=== PATIENT | male | born 1975 | race Caucasian/White ===

== ENCOUNTER → 2017-07-16 | Outpatient (CLI) | payer BC ==
--- NOTE | 2017-07-16 09:51 | XR ---
EXAM TYPE: LUMBAR SPINE X RAY SERIES COMPARISON: NONE HISTORY: Lower back pain TECHNIQUE: 4 views are submitted. FINDINGS: Alignment is anatomic. The pedicles are intact. The transverse processes are intact. There is no s pondylolysis or spondylolisthesis. Facet arthropathy L5-S1. Degenerative disc disease L4-5 and L5-S1 . IMPRESSION: 1. Generative disc disease L4-L5 and L5-S1 with facet arthropathy..
== END | disposition home or self-care (01) ==
LOC: RADXRMAIN 09:11
PROVIDERS: ATTEND Internal Medicine Critical Care Medicine
DX: M51.37 Other intervertebral disc degeneration, lumbosacral region (principal); M46.06 Spinal enthesopathy, lumbar region
CPT/HCPCS: 72110

== ENCOUNTER → 2017-07-29 | Outpatient (CLI) | payer BC ==
--- NOTE | 2017-07-29 08:33 | CT ---
EXAMINATION TYPE: CT lumbar spine w con DATE OF EXAM: 07/29/2017 COMPARISON: NONE HISTORY: Low back strain CT DLP: 407 mGycm CONTRAST: Unenhanced CT of the lumbar spine is performed with IV Contrast, patient injected with 100 ml mL of O mnipaque 300. Unenhanced CT of the lumbar spine was performed. Bone and soft tissue window settings are submitted as well as coronal and sagittal reconstructions. L1-L2: Normal disc space height. No disc herniation protrusion or central stenosis. No facet joint arthropathy. No evidence for foraminal encroachment. L2-L3: Normal disc space height. No disc herniation protrusion or central stenosis. No facet joint arthropathy. No evidence for foraminal encroachment. L3-L4: Normal disc space height. No disc herniation protrusion or central stenosis. No facet joint arthropathy. No evidence for foraminal encroachment. L4-L5: Normal disc space height. No disc herniation protrusion or central stenosis. No facet joint arthropathy. No evidence for foraminal encroachment. L5-S1: Mild degenerative disc space narrowing. Right paracentral disc herniation without extrusion. R ight lateral recess stenosis and mild right foraminal encroachment. No evidence for central stenosis at this time. No paraspinal masses are identified. Lumbar segments are free if fracture. IMPRESSION: 1. Right paracentral disc herniation at L5-S1 with right lateral recess stenosis.
== END | disposition home or self-care (01) ==
LOC: RADCTMAIN 07:39
PROVIDERS: ATTEND Internal Medicine Critical Care Medicine
DX: M48.07 Spinal stenosis, lumbosacral region (principal); M51.27 Other intervertebral disc displacement, lumbosacral region
CPT/HCPCS: 72132; Q9967

== ENCOUNTER → 2017-11-16 | Outpatient (CLI) | payer BC ==
[2017-11-16 10:51] LABS: T4, Free (Free Thyroxine) <0.07 ng/dL (0.78-2.19)
== END | disposition home or self-care (01) ==
LOC: LABWHC1 09:59
PROVIDERS: ATTEND Internal Medicine Critical Care Medicine
DX: E03.9 Hypothyroidism, unspecified (principal)
CPT/HCPCS: 36415; 84439; 84443

== ENCOUNTER → 2018-05-24 | Outpatient (CLI) | payer BC ==
[2018-05-24 11:18] LABS: T4, Free (Free Thyroxine) 1.72 ng/dL (0.78-2.19)
== END ==
LOC: LABWHC1 10:08
PROVIDERS: ATTEND Internal Medicine Critical Care Medicine
DX: E03.9 Hypothyroidism, unspecified (principal)
CPT/HCPCS: 36415; 84439; 84443

== ENCOUNTER 2018-11-11 20:39 | Emergency (ER) | payer OTHER, BC ==
[2018-11-11 20:58] VITALS: TEMP 98.2
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
[2018-11-11 22:42] VITALS: BP 139/87; PULSE 61; RESP 18
== END 2018-11-11 22:42 | disposition home or self-care (01) ==
LOC: EC 20:39
DX: S89.91XA Unspecified injury of right lower leg, initial encounter (principal); S89.92XA Unspecified injury of left lower leg, initial encounter; S49.91XA Unspecified injury of right shoulder and upper arm, initial encounter; S49.92XA Unspecified injury of left shoulder and upper arm, initial encounter; M19.90 Unspecified osteoarthritis, unspecified site; E07.9 Disorder of thyroid, unspecified; Z87.891 Personal history of nicotine dependence; Z79.1 Long term (current) use of non-steroidal anti-inflammatories (NSAID); Z79.899 Other long term (current) drug therapy; V43.52XA Car driver injured in collision with other type car in traffic accident, initial encounter; Y92.89 Other specified places as the place of occurrence of the external cause
CPT/HCPCS: 99283

== ENCOUNTER → 2019-06-15 | Outpatient (CLI) | payer BC | END | disposition home or self-care (01) | LOC: LABWHC1 13:46 | PROVIDERS: ATTEND Internal Medicine Critical Care Medicine | DX: E03.9 Hypothyroidism, unspecified (principal) | CPT/HCPCS: 36415; 84439; 84443 ==

== ENCOUNTER → 2020-07-29 | Outpatient (CLI) | payer BC ==
[2020-07-29 16:48] LABS: T4, Free (Free Thyroxine) 1.4 ng/dL (0.80-1.80)
== END | disposition home or self-care (01) ==
LOC: LABWHC1 09:10
PROVIDERS: ATTEND Internal Medicine Critical Care Medicine
DX: E03.9 Hypothyroidism, unspecified (principal)
CPT/HCPCS: 36415; 84439; 84443

== ENCOUNTER → 2021-03-28 | Outpatient (CLI) | payer BC ==
[2021-03-28 16:06] LABS: Amylase 58 U/L (23-121); Lipase 56 U/L (14-60)
== END | disposition home or self-care (01) ==
LOC: LABWHC1 09:53
PROVIDERS: ATTEND Internal Medicine Critical Care Medicine
DX: R10.9 Unspecified abdominal pain (principal)
CPT/HCPCS: 36415; 82150; 83690

== ENCOUNTER → 2021-10-08 | Outpatient (CLI) | payer BC ==
[2021-10-08 15:33] LABS: T4, Free (Free Thyroxine) 1.48 ng/dL (0.800-1.800)
== END | disposition home or self-care (01) ==
LOC: LABWHC1 07:51
PROVIDERS: ATTEND Internal Medicine Critical Care Medicine
DX: E03.9 Hypothyroidism, unspecified (principal)
CPT/HCPCS: 36415; 84439; 84443

== ENCOUNTER → 2022-11-06 | Outpatient (CLI) | payer BC ==
[2022-11-06 15:11] LABS: Basophils # (A) 0.08 X 10*3/uL (0.00-0.10); Basophils % (A) 1.2 %; Eosinophils # (A) 0.29 X 10*3/uL (0.04-0.35); Eosinophils % (A) 4.5 %; HGB 13.6 g/dL (13.0-17.0); Immature Grans, Automated 0.2 %; Lymphocytes # (A) 1.97 X 10*3/uL (0.90-5.00); Lymphocytes % (A) 30.7 %; MCH 33.3 pg (27.0-32.0); Mean Platelet Volume 11.3 fL (9.5-12.2); Monocytes # (A) 0.38 X 10*3/uL (0.20-1.00); Monocytes % (A) 5.9 %; NRBC Per 100 WBC 0 /100 WBCS (0.0-0.0); Neutrophils # (A) 3.69 X 10*3/uL (1.80-7.70); Neutrophils % (A) 57.5 %; Platelet Count 274 X 10*3/uL (140-440); RBC 4.08 X 10*6/uL (4.40-5.60); WBC 6.42 X 10*3/uL (4.50-10.00)
[2022-11-06 15:46] LABS: Prostate Specific Antigen 0.6 ng/mL (0.00-2.50); T4, Free (Free Thyroxine) 1.24 ng/dL (0.800-1.800)
== END | disposition home or self-care (01) ==
LOC: LABWHC1 09:55
PROVIDERS: ATTEND Internal Medicine Critical Care Medicine
DX: Z00.00 Encounter for general adult medical examination without abnormal findings (principal); E03.9 Hypothyroidism, unspecified; K58.9 Irritable bowel syndrome, unspecified; R76.11 Nonspecific reaction to tuberculin skin test without active tuberculosis
CPT/HCPCS: 36415; 82306; 82947; 83036; 84153; 84439; 84443; 85025

== ENCOUNTER → 2023-10-29 | Outpatient (CLI) | payer BC ==
[2023-10-29 15:57] LABS: ALT 15 U/L (10-49); AST 16 U/L (14-35); Albumin 4.5 g/dL (3.8-4.9); Albumin/Globulin Ratio 2.05 Ratio (1.60-3.17); Alkaline Phosphatase 77 U/L (41-126); Blood Urea Nitrogen 8.4 mg/dL (9.0-27.0); Calcium 9.7 mg/dL (8.7-10.3); Carbon Dioxide 25.7 mmol/L (21.6-31.8); Chloride 105 mmol/L (96-109); Chol/HDL Ratio 2.87 Ratio; Globulin 2.2 g/dL (1.6-3.3); Glucose 96 mg/dL (70-110); LDL Cholesterol,Calculated 80.7 mg/dL (0.0-131.0); Potassium 4.6 mmol/L (3.5-5.5); Sodium 140 mmol/L (135-145); T4, Free (Free Thyroxine) 1.45 ng/dL (0.80-1.80); Total Protein 6.7 g/dL (6.2-8.2); VLDL Calculation 11.12 mg/dL (5.00-40.00)
[2023-10-29 16:41] LABS: PSA Annual Screen 0.522 ng/mL (0.000-4.000)
[2023-10-29 16:47] LABS: Basophils # (A) 0.06 X 10*3/uL (0.00-0.10); Eosinophils # (A) 0.22 X 10*3/uL (0.04-0.35); Eosinophils % (A) 3.7 %; HCT 38.4 % (39.6-50.0); Lymphocytes # (A) 1.94 X 10*3/uL (0.90-5.00); Lymphocytes % (A) 32.8 %; MCH 34.9 pg (27.0-32.0); MCHC 33.9 g/dL (32.0-37.0); MCV 102.9 FL (80.0-97.0); Mean Platelet Volume 11.7 FL (9.5-12.2); Monocytes # (A) 0.34 X 10*3/uL (0.20-1.00); Monocytes % (A) 5.7 %; NRBC Per 100 WBC 0 X 10*3/uL (0.00-0.01); Neutrophils # (A) 3.35 X 10*3/uL (1.80-7.70); Neutrophils % (A) 56.6 %; Platelet Count 267 X 10*3/uL (140-440); RBC 3.73 X 10*6/uL (4.40-5.60); RDW 14.2 % (11.5-14.5); WBC 5.92 X 10*3/uL (4.50-10.00)
== END | disposition home or self-care (01) ==
LOC: LABWHC1 09:48
PROVIDERS: ATTEND Internal Medicine Critical Care Medicine
DX: Z12.5 Encounter for screening for malignant neoplasm of prostate (principal); E55.9 Vitamin D deficiency, unspecified; E03.9 Hypothyroidism, unspecified; R76.11 Nonspecific reaction to tuberculin skin test without active tuberculosis
CPT/HCPCS: 84439; 80061; 80053; 84443; 85025; 82306; 83036; 36415; G0103

== ENCOUNTER → 2024-11-11 | Outpatient (CLI) | payer BC ==
[2024-11-11 13:35] LABS: Basophils # (A) 0.11 X 10*3/uL (0.00-0.10); Basophils % (A) 1.6 %; Eosinophils # (A) 0.39 X 10*3/uL (0.04-0.35); Eosinophils % (A) 5.6 %; Lymphocytes # (A) 1.89 X 10*3/uL (0.90-5.00); Lymphocytes % (A) 27.2 %; MCH 28.8 pg (27.0-32.0); MCHC 30.6 g/dL (32.0-37.0); MCV 94.2 FL (80.0-97.0); Mean Platelet Volume 13.2 FL (9.5-12.2); Monocytes # (A) 0.42 X 10*3/uL (0.20-1.00); NRBC Per 100 WBC 0 X 10*3/uL (0.00-0.01); Neutrophils # (A) 4.12 X 10*3/uL (1.80-7.70); Neutrophils % (A) 59.3 %; Platelet Count 240 X 10*3/uL (140-440); RDW 12.8 % (11.5-14.5); WBC 6.95 X 10*3/uL (4.50-10.00)
[2024-11-11 14:02] LABS: ALT 34 U/L (10-49); AST 27 U/L (14-35); Albumin 4.4 g/dL (3.8-4.9); Albumin/Globulin Ratio 1.83 Ratio (1.60-3.17); Alkaline Phosphatase 100 U/L (41-126); Blood Urea Nitrogen 9.6 mg/dL (9.0-27.0); Calcium 9.7 mg/dL (8.7-10.3); Carbon Dioxide 27.2 mmol/L (21.6-31.8); Chloride 104 mmol/L (96-109); Chol/HDL Ratio 4.13 Ratio; Globulin 2.4 g/dL (1.6-3.3); Glucose 99 mg/dL (70-110); LDL Cholesterol,Calculated 94.1 mg/dL (0.0-131.0); Potassium 4.1 mmol/L (3.5-5.5); Sodium 142 mmol/L (135-145); T4, Free (Free Thyroxine) 1.05 ng/dL (0.80-1.80); Total Bilirubin 0.3 mg/dL (0.3-1.2); Total Protein 6.8 g/dL (6.2-8.2)
[2024-11-11 14:03] LABS: PSA Annual Screen 0.612 ng/mL (0.000-4.000)
== END | disposition home or self-care (01) ==
LOC: LABWHC1 09:08
PROVIDERS: ATTEND Internal Medicine Critical Care Medicine
DX: Z00.00 Encounter for general adult medical examination without abnormal findings (principal); R76.11 Nonspecific reaction to tuberculin skin test without active tuberculosis; E55.9 Vitamin D deficiency, unspecified; J30.9 Allergic rhinitis, unspecified; E03.9 Hypothyroidism, unspecified
CPT/HCPCS: 84439; 80061; 80053; 84443; 85025; 84403; 82306; 83036; 36415; G0103

== ENCOUNTER 2025-02-23 07:01 | Day surgery (SDC) | payer BC ==
[2025-02-21 11:54] VITALS: BMI 25.1
[~2025-02-23 07:01] MED LIST: SCOPOLAMINE 1 MG/72 HR PATCH TRANSDERM ONE
[2025-02-23] MEDS: IV FLUID CONTINUATION 1,000 ML IV ONE ×2 (07:43→11:45)
[2025-02-23] MEDS: ONDANSETRON 4 MG/2 ML VIAL IVP ONE (07:53)
[2025-02-23] MEDS: DEXAMETHASONE SOD PHOSPHATE 4 MG/ML 1 ML VIAL IV ONE (07:53)
[2025-02-23] MEDS: LACTATED RINGERS 1,000 ML IV SCH (07:54)
[2025-02-23] MEDS: MIDAZOLAM 2 MG/2 ML VIAL IV PRN (08:10)
[2025-02-23] MEDS: fentaNYL (PF) 50 MCG/ML 2 ML AMP IVP PRN (08:10)
[2025-02-23] MEDS ORDERED: GLYCOPYRROLATE 0.2 MG/ML 2 ML VIAL ONE (08:50)
[2025-02-23] MEDS ORDERED: diphenhydrAMINE 50 MG/ML 1 ML VIAL ONE (08:50)
[2025-02-23] MEDS ORDERED: DEXAMETHASONE SOD PHOSPHATE 4 MG/ML 1 ML VIAL ONE (08:50)
[2025-02-23] MEDS ORDERED: LIDOCAINE 1% INJ 10MG/ML (20 ML MDV) ONE (08:50)
[2025-02-23] MEDS ORDERED: PROPOFOL 10 MG/ML 20 ML VIAL IV ONE (08:50)
[2025-02-23] MEDS ORDERED: ROPIVACAINE 5 MG/ML 30 ML VIAL ONE (08:50)
[2025-02-23] MEDS ORDERED: fentaNYL (PF) 50 MCG/ML 2 ML AMP ONE (08:50)
[2025-02-23] MEDS ORDERED: SODIUM CHLORIDE 0.9% (PF) 10 ML VIAL ONE (08:50)
[2025-02-23] MEDS: ceFAZolin 2 GM in DEXTROSE 5% IN WATER 50 ML IVPB PRN (08:55)
[2025-02-23] MEDS: ceFAZolin 1,000 MG in SODIUM CHLORIDE 0.9% 1,000 ML IRRIGATION ONE (09:16)
[2025-02-23] MEDS: HEPARIN SODIUM 1,000 UN/ML (10ML VL) MISCELLANE ONE (09:21)
[2025-02-23 11:16] VITALS: TEMP 97.3
[2025-02-23] MEDS: HYDROmorphone 0.5 MG/0.5 ML SYRINGE IVP PRN (11:54)
[2025-02-23 12:29] VITALS: RESP 16
[2025-02-23] MEDS: HYDROcodone/APAP 5-325MG 1 EACH TAB PO PRN (12:58)
--- NOTE | 2025-02-23 13:05 | P.OP ---
Date of Procedure: 02/23/25 Preoperative Diagnosis: 1. Primary osteoarthritis left subtalar joint 2. Acquired deformity of left foot 3. Gastroc equinus left leg Postoperative Diagnosis: 1. Same 2. Same 3. Same Procedure(s) Performed: 1. Subtalar joint arthrodesis left foot 2. Cotton osteotomy left foot 3. Gastroc recession left leg 4. Bone marrow aspiration Implants: Arthrex 7.0 mm headless screws x 2, BMAC, 10 cc of bone allograft, Arthrex power nium cotton wedge (4.5mm x 20mm) Anesthesia: NERIS Surgeon: Fransico Bobo Estimated Blood Loss (ml): 63 Pathology: none sent Condition: stable Disposition: PACU Description of Procedure: Prior to the patient being brought to the op room, anesthesia administered a nerve block of the operative extremity. The patient was brought into the op room and placed on table supine position. Timeout was taken to confirm correct patient identifiers, correct laterality of surgery, and correct procedure. Once all staff in the room was in agreement the timeout, the patient was induced and placed under general anesthesia. A tourniquet was placed on the left thigh and then the left leg was prepped and draped usual manner. Attention directed over the anterior medial ankle where a trocar and cannula were impacted into the medullary canal of the tibia. 60 cc of bone marrow aspirate were removed and passed off the field to be spun down into out bone marrow concentrate. Then the leg was exsanguinated, the knee flexed, and the tourniquet inflated to 250 mmHg. Attention directed the lateral aspect of the foot where a curvilinear incision was made over the sinus tarsi and lateral subtalar joint the incision was deepened down to the subcutaneous tissue careful to identify, void, and retracting neurovascular structures and cauterize any bleeding vessels. Blunt dissection was carried down to the subtalar joint capsule. The capsule was incised releasing the lateral ligaments to allow access to the joint. An osteotome was used to remove the bulk of the articular cartilage on the conjoining surfaces. Then pins were placed in the talus and calcaneus for distractor. The distractor was able to open up the joint to allow access with the joint prep bur. The joint prep bur was used to remove the articular cartilage and subchondral bone, down to bleeding medullary bone. More bone was taken medially from the subtalar joint surface then laterally to allow for some varus correction of the heel once the area was reduced. Once adequate bone preparation was completed, an osteotome was used to fish scale the surfaces. Then the bone marrow aspirate and 10 cc of bone allograft were mixed together on the back table into her desired consistency, and then the bone graft was packed into the subtalar joint fusion site. The distractor was released to allow the joint to compress. With the heel held in neutral alignment to the tibia, guidewires for the 7.0 millimeter screws were placed through the plantar posterior aspect of the calcaneus, distal to the Achilles insertion, and advanced through the calcaneus and across the subtalar joint into the talar body. AP ankle and lateral foot imaging confirmed the proper placement of the wires. Small stab incisions were made through the skin at the entry point the wires. Drilling was performed into the talar body. 7.0 mm compression screws were placed over the wires and advanced until the heads were buried into the calcaneus. There was good bite with the screws. And fluoroscopy indicated excellent compression at the arthrodesis site. Once the subtalar joint fusion was completed, the foot was evaluated for the need for a cotton procedure. With the hindfoot now in neutral, there was elevation of the first ray, therefore the decision for the cotton osteotomy was made. Fluoroscopy was used to identify the medial cuneiform. An incision was made over the cuneiform medial to the extensor hallucis longus. The incision was deepened down to the subcutaneous tissue careful to identify, void, and retracting neurovascular structures and cauterize any bleeding vessels. The soft tissue was reflected medially and dorsally to expose the entirety of the cuneiform. Under fluoroscopy a richie was made over the bone for the location of the osteotomy. A sagittal saw was used to create the osteotomy through the midportion of the cuneiform, parallel to the long axis of the bone. And fluoroscopy, the saw was advanced until the plantar cortical shelf. The plantar cortical shelf was left intact. Various sized wedges were used to determine the correct graft size. It was determined that a 4.5 mm x 20 mm graft was appropriate. The graft is titanium and the previous allograft with marrow aspirate was placed in the void of the titanium wedge. Then it was inserted into the osteotomy and impacted down to proper depth. Fluoroscopy confirmed the proper position of the wedge. Visually the forefoot varus was corrected. All wounds were thoroughly irrigated with antibiotic saline. Deep closure of the lateral incision was done with 2-0 Vicryl. Subcutaneous closure of both incisions was done with 4-0 Monocryl. The lateral incision was closed with aishwarya the dorsal foot incision was closed with STRATAFIX in a running subcuticular manner. The wedge beneath the left hip was removed to externally rotate the leg. Attention directed the posterior aspect of the leg for the gastroc recession. A linear incision was made medial to the midline, just distal to the gastroc muscle belly. The incision was deepened down to the subcutaneous tissue careful to identify, void, and retract any neurovascular structures and cauterize any bleeding vessels. Blunt dissection was continued through the subcutaneous layer down to the deep fascia overlying the gastroc aponeurosis. The fascia was incised and bluntly dissected off the underlying aponeurosis. The aponeurosis was mobilized with a forcep and a transverse incision was made through the aponeurosis from lateral to medial. Once that was completed the ankle was dorsiflexed to create the gap in the aponeurosis indicating a full release. The wound was thoroughly irrigated with antibiotic saline. The deep fascia was reapproximated with 4-0 Vicryl. Subcutaneous closure was done with 4 Monocryl. And skin closure done with aishwarya. Dermal glue was placed over the dorsal foot incision and then covered with Steri-Strips. Aishwarya were placed in the screw hole entry points in the heel also. Arthrex jumpstart was placed over all the incisions and then a bulky dry dressing is applied to the left foot and leg. The tourniquet was released and capillary refill returned all digits on the foot. Patient was placed in a well-padded, well molded plaster posterior mold/sugar-tong splint. The ankle was held in neutral position until the splint was fully dried. Then anesthesia was reversed and the patient was taken recovery with vital signs stable
[2025-02-23 13:24] VITALS: BP 141/96; PULSE 84
--- NOTE | 2025-02-23 14:35 | P.ANPRN ---
Procedure Note - Anesthesia - Nerve Block Performed Left Adductor Canal Single Time Out Performed: Yes (0820) Date of Procedure: 02/23/25 Location of Patient: PreOp Indication: Acute Post-Operative Pain, Dx/Pain Location (left ankle), Requested by Surgeon Specifically requested for management of pain by DrCatrachito: Fransico Bobo Sedation Type: Sedate with meaningful contact maintained Position: Supine Catheter: None Needle Types: Pajunk Needle Gauge: 21 Ultrasound used to visualize needle placement: Yes Ultrasound used to observe medication spread: Yes Injectate: 0.5% Ropivacaine (see comment for volume) (20 cc + 2mg of decadron) Blood Aspirated: No Pain Paresthesia on Injection Noted: No Resistance on Injection: Normal Image Stored and Saved: Yes Events: Uneventful and Well Tolerated Left Popliteal Single Time Out Performed: Yes Date of Procedure: 02/23/25 Location of Patient: PreOp Indication: Acute Post-Operative Pain, Dx/Pain Location Sedation Type: Sedate with meaningful contact maintained Preparation: Sterile Prep Position: Right Lateral Catheter: None Needle Types: Pajunk Ultrasound used to visualize needle placement: Yes Ultrasound used to observe medication spread: Yes Injectate: 0.5% Ropivacaine (see comment for volume) (20 cc + 2mg of decadron) Blood Aspirated: No Pain Paresthesia on Injection Noted: No Resistance on Injection: Normal Image Stored and Saved: Yes Events: Uneventful and Well Tolerated
== END 2025-02-23 13:46 | disposition home or self-care (01) ==
LOC: OR 07:01
PROVIDERS: ATTEND Podiatrist
DX: M19.072 Primary osteoarthritis, left ankle and foot (principal); M62.462 Contracture of muscle, left lower leg; M21.962 Unspecified acquired deformity of left lower leg; G89.18 Other acute postprocedural pain
CPT/HCPCS: 28725; 27687; 38220; 20999; 64447; 64445; C1713; C1734; J2250; J1200; J1100; J0690 ×2; J2405; J2003; J3010; J1644; J2795; J2704; J1171; J1596

== ENCOUNTER → 2025-04-26 | Outpatient (CLI) | payer BC ==
[2025-04-26 19:33] LABS: BUN/Creat Ratio 7.87 Ratio (12.00-20.00); Blood Urea Nitrogen 11.8 mg/dL (9.0-27.0); Carbon Dioxide 24.9 mmol/L (21.6-31.8); Chloride 106 mmol/L (96-109); Glucose 87 mg/dL (70-110); Potassium 4.3 mmol/L (3.5-5.5); Sodium 142 mmol/L (135-145)
[2025-04-26 19:34] LABS: ALT 126 U/L (10-49); AST 278 U/L (14-35); Albumin 4.4 g/dL (3.8-4.9); Albumin/Globulin Ratio 1.83 Ratio (1.60-3.17); Alkaline Phosphatase 106 U/L (41-126); Calcium 9.8 mg/dL (8.7-10.3); Globulin 2.4 g/dL (1.6-3.3); Total Bilirubin 0.5 mg/dL (0.3-1.2); Total Protein 6.8 g/dL (6.2-8.2)
== END | disposition home or self-care (01) ==
LOC: LABWHC1 10:36
PROVIDERS: ATTEND Internal Medicine Critical Care Medicine
DX: N19 Unspecified kidney failure (principal)
CPT/HCPCS: 36415; 80053

== ENCOUNTER → 2025-05-14 | Outpatient (CLI) | payer BC ==
[2025-05-14 15:28] LABS: HCT 47.3 % (39.6-50.0); HGB 15.1 g/dL (13.0-17.0); MCH 27.9 pg (27.0-32.0); MCHC 31.9 g/dL (32.0-37.0); MCV 87.3 FL (80.0-97.0); Mean Platelet Volume 12.8 FL (9.5-12.2); NRBC Per 100 WBC 0 X 10*3/uL (0.00-0.01); Platelet Count 301 X 10*3/uL (140-440); RBC 5.42 X 10*6/uL (4.40-5.60); WBC 7.65 X 10*3/uL (4.50-10.00)
[2025-05-14 15:29] LABS: Basophils % (A) 1.3 %; Eosinophils # (A) 0.29 X 10*3/uL (0.04-0.35); Eosinophils % (A) 3.8 %; Lymphocytes # (A) 2.27 X 10*3/uL (0.90-5.00); Lymphocytes % (A) 29.7 %; Monocytes # (A) 0.45 X 10*3/uL (0.20-1.00); Monocytes % (A) 5.9 %; Neutrophils # (A) 4.52 X 10*3/uL (1.80-7.70)
[2025-05-14 15:49] LABS: Protein, Total 6.8 g/dL (6.2-8.2)
[2025-05-14 15:58] LABS: % Iron Saturation 13.37 (15.00-50.00); ALT 29 U/L (10-49); AST 29 U/L (14-35); Albumin 4.4 g/dL (3.8-4.9); Albumin/Globulin Ratio 1.63 Ratio (1.60-3.17); Alkaline Phosphatase 116 U/L (41-126); BUN/Creat Ratio 7.62 Ratio (12.00-20.00); Blood Urea Nitrogen 12.2 mg/dL (9.0-27.0); Calcium 9.7 mg/dL (8.7-10.3); Carbon Dioxide 25.1 mmol/L (21.6-31.8); Chloride 104 mmol/L (96-109); Ferritin 34.1 ng/mL (22.0-322.0); Globulin 2.7 g/dL (1.6-3.3); Glucose 83 mg/dL (70-110); Hepatitis A Antibody IgM Nonreactive (Nonreactive); Hepatitis B Core IgM Nonreactive (Nonreactive); Hepatitis B Surface Antigen Nonreactive (Nonreactive); Hepatitis C IgG Antibody Nonreactive (Nonreactive); Iron 46 UG/DL (65-175); Potassium 4.2 mmol/L (3.5-5.5); Sodium 142 mmol/L (135-145); Total Bilirubin 0.3 mg/dL (0.3-1.2); Total Iron Binding Capacity 344 UG/DL (228-460); Total Protein 7.1 g/dL (6.2-8.2)
[2025-05-14 16:30] LABS: Ceruloplasmin 25.5 mg/dL (20.0-60.0)
[2025-05-15 13:41] LABS: Smooth Muscle Antibody 6 UNITS (<20)
== END | disposition home or self-care (01) ==
LOC: LABWHC1 09:42
PROVIDERS: ATTEND Nurse Practitioner Family
DX: R74.8 Abnormal levels of other serum enzymes (principal)
CPT/HCPCS: 36415; 80053; 80074; 81596; 82103; 82390; 82728; 83516; 83540; 83550; 84165; 85025; 86038

== ENCOUNTER → 2025-05-21 | Outpatient (CLI) | payer BC ==
--- NOTE | 2025-05-21 08:39 | US ---
EXAMINATION TYPE: US abdomen complete DATE OF EXAM: 05/21/2025 COMPARISON: CT 2013 CLINICAL INDICATION: Male, 50 years old with history of R74.8 ABNORMAL LEVELS OF OTHER SERUM ENZYMES; Abnormal labs TECHNIQUE: Grayscale and color Doppler imaging of the abdomen was performed. FINDINGS: EXAM MEASUREMENTS: Liver Length: 15.9 cm Gallbladder Wall: 0.2 cm CBD: 0.3 cm, color Doppler imaging was utilized to isolate the common bile duct for measurement. Spleen: 14.0 cm Right Kidney: 9.2 x 4.0 x 5.3 cm Left Kidney: 9.9 x 5.2 x 5.5 cm TECHNICAL OPERATIONS VICE PRESIDENT NOTES: Pancreas: wnl, tail obscured by overlying bowel gas Liver: Heterogeneous Gallbladder: wnl Evidence for sonographic Christine's sign: No CBD: wnl Spleen: Enlarged Right Kidney: wnl, No hydronephrosis, calculi or masses seen, lower pole gassed out Left Kidney: wnl, No hydronephrosis, calculi or masses seen, lower pole gassed out Upper IVC: wnl Abd Aorta: wnl The liver is homogenous without surface nodularity or focal lesion. The intrahepatic portion of the IVC and proximal abdominal aorta are within normal limits. There is no evidence of cholelithiasis. Common bile duct is unremarkable. The visualized portions of the pancreas are homogenous. The splee n is borderline-enlarged. Kidneys are symmetric and free of hydronephrosis. No renal lesions are se en. IMPRESSION: 1. No ultrasound evidence for acute process. 2. Borderline splenomegaly. [facility], , 05/21/2025 8:37 AM
== END | disposition home or self-care (01) ==
LOC: RADUSWWP 08:07
PROVIDERS: ATTEND Internal Medicine Gastroenterology
DX: R74.8 Abnormal levels of other serum enzymes (principal)
CPT/HCPCS: 76700